=== PATIENT | female | born 1975 | race Caucasian/White ===

== ENCOUNTER 2023-08-19 00:46 | Inpatient (IN) | payer OTHER ==
[2023-08-19] VITALS (13 sets, daily range): BP systolic 113–139; BP diastolic 73–93; PULSE 103–118; RESP 13–20; TEMP 97.5–98.6; O2SAT 93–99
[~2023-08-19] VITALS: Ht 170.2 cm; Wt 116.9 kg
[2023-08-19] MEDS: budesonide 0.5mg/2ml UD nebule IH ONE (01:24)
[2023-08-19] MEDS: ipratropium/albuterol 3ml nebule NEB ONE (01:24)
[2023-08-19] MEDS: methylPREDNISolone sod succ 125mg/2ml vial IV ONE (01:51)
[2023-08-19 01:57] LABS: BASOPHILS % (AUTO) 0.3 % (0-1); EOSINOPHILS # (AUTO) 0.1 X10'3 (0-0.9); EOSINOPHILS % (AUTO) 1.6 % (0-6); HEMATOCRIT 33.6 % (35.0-45.0); HEMOGLOBIN 11.1 g/dl (12.0-16.0); LYMPHOCYTES # (AUTO) 2.1 X10'3 (1.1-4.8); MEAN CORPUSCULAR HEMOGLOBIN 31.3 PG (27.0-31.0); MEAN CORPUSCULAR HGB CONC 32.9 g/dL (33.0-36.5); MEAN CORPUSCULAR VOLUME 95.2 FL (78-98); MEAN PLATELET VOLUME 7.8 FL (7.4-10.4); MONOCYTES # (AUTO) 0.4 X10'3 (0-0.9); MONOCYTES % (AUTO) 8.1 % (2-12); NEUTROPHILS # (AUTO) 2.3 X10'3 (1.8-7.7); PLATELET COUNT 176 X10'3 (140-440); RED BLOOD COUNT 3.53 X10'6 (4.20-5.60); RED CELL DISTRIBUTION WIDTH 14.7 % (11.5-14.5); WHITE BLOOD COUNT 4.9 X10'3 (4.5-11.0)
[2023-08-19 02:19] LABS: ALANINE AMINOTRANSFERASE 124 U/L (12-78); ALBUMIN 3.6 G/DL (3.4-5.0); ALBUMIN/GLOBULIN RATIO 0.9 (1.1-1.5); ALKALINE PHOSPHATASE 96 IU/L (46-116); ANION GAP 12 (8-16); ASPARTATE AMINO TRANSFERASE 108 U/L (10-37); BILIRUBIN,TOTAL 0.5 MG/DL (0.1-1.0); BLOOD UREA NITROGEN 6 MG/DL (7-18); BUN/CREATININE RATIO 9.1 (10.0-20.0); CALCIUM 7.6 MG/DL (8.5-10.1); CHLORIDE 102 MMOL/L (99-107); CREATININE 0.66 MG/DL (0.40-0.90); GLUCOSE 97 MG/DL (70-104); POTASSIUM 3.3 MMOL/L (3.5-5.1); SODIUM 136 MMOL/L (135-145); TOTAL CARBON DIOXIDE 22.4 MMOL/L (24-32); TOTAL PROTEIN 7.6 G/DL (6.4-8.2); eCRCL 104 ML/MIN; eGFR > 90 ML/MIN
[2023-08-19] MEDS ORDERED: mag hydrox/Alum hydrox/simeth 30ml oral suspension PO PRN (03:35)
[2023-08-19] MEDS ORDERED: ondansetron/PF 4mg/2ml inj IV PRN (03:35)
[2023-08-19] MEDS ORDERED: acetaminophen 325mg tablet PO PRN (03:35)
[2023-08-19] MEDS ORDERED: magnesium Cl slow-release 64mg tablet PO PRN (03:35)
[2023-08-19] MEDS ORDERED: potassium Cl 20 mEq SR tablet PO PRN (03:35)
[2023-08-19] MEDS ORDERED: magnesium hydroxide 30ml (MOM) UD suspension PO PRN (03:35)
[2023-08-19] MEDS ORDERED: magnesium 4gm in 100ml NS 100 ML IV PRN (03:35)
[2023-08-19] MEDS ORDERED: potassium Cl 40MEQ/1/2NS 520ml 520 ML IV PRN (03:35)
[2023-08-19 03:37] LABS: MAGNESIUM 1.7 MG/DL (1.5-2.4); PRO BRAIN NATRIURETIC PEPTIDE 662 PG/ML (0-125)
[2023-08-19] MEDS ORDERED: ipratropium/albuterol 3ml nebule NEB PRN (04:25)
[2023-08-19 05:02] LABS: FREE T4 (FREE THYROXINE) 1.24 NG/DL (0.73-1.40); PRO BRAIN NATRIURETIC PEPTIDE 598 PG/ML (0-125); THYROID STIMULATING HORMONE 8.19 ulU/ml (0.34-4.50)
[2023-08-19] MEDS: budesonide 0.5mg/2ml UD nebule IH SCH (08:22)
[2023-08-19 08:26] LABS: CREATINE KINASE 137 U/L (26-192)
[2023-08-19] MEDS: docusate sod 100mg capsule PO SCH (09:04)
[2023-08-19] MEDS: CefTRIAXone/D5W-Rocephin 1gm 50 ML IV SCH (09:06)
[2023-08-19] MEDS: heparin, porcine 5000 units/ml vial SQ SCH (09:06)
[2023-08-19] MEDS: azithromycin/NS 500mg/250ml 250 ML IV SCH (10:33)
[2023-08-19] MEDS ORDERED: iohexol 300mg/ml 100ml inj. ONE (13:06)
[2023-08-19] MEDS: potassium Cl 20 mEq SR tablet PO STA (14:42)
[2023-08-19] MEDS: carVEDilol 3.125mg tablet PO SCH (20:37)
[2023-08-19] MEDS: furosemide 40mg/4ml inj IV SCH (20:37)
[2023-08-19] MEDS: potassium Cl 20 mEq SR tablet PO PRN (20:37)
[2023-08-19] MEDS ORDERED: temazepam 15mg capsule PO PRN (21:00)
[2023-08-19] MEDS: acetaminophen 325mg tablet PO PRN (21:03)
[2023-08-20] VITALS (8 sets, daily range): BP systolic 102–112; BP diastolic 73–83; PULSE 92–108; RESP 15–18; TEMP 97.7–98.4; O2SAT 93–97
[2023-08-20 02:03] LABS: BASOPHILS % (AUTO) 0.1 % (0-1); EOSINOPHILS % (AUTO) 0 % (0-6); HEMATOCRIT 36.2 % (35.0-45.0); HEMOGLOBIN 12.1 g/dl (12.0-16.0); LYMPHOCYTES % (AUTO) 10.6 % (21-51); MEAN CORPUSCULAR HEMOGLOBIN 31.6 PG (27.0-31.0); MEAN CORPUSCULAR HGB CONC 33.5 g/dL (33.0-36.5); MEAN CORPUSCULAR VOLUME 94.2 FL (78-98); MEAN PLATELET VOLUME 8.4 FL (7.4-10.4); MONOCYTES # (AUTO) 0.8 X10'3 (0-0.9); MONOCYTES % (AUTO) 8.4 % (2-12); NEUTROPHILS # (AUTO) 7.5 X10'3 (1.8-7.7); NEUTROPHILS % (AUTO) 80.9 % (42-75); PLATELET COUNT 211 X10'3 (140-440); RED BLOOD COUNT 3.84 X10'6 (4.20-5.60); RED CELL DISTRIBUTION WIDTH 14.6 % (11.5-14.5); WHITE BLOOD COUNT 9.3 X10'3 (4.5-11.0)
[2023-08-20 02:14] LABS: ALBUMIN 3.6 G/DL (3.4-5.0); ANION GAP 8 (8-16); BLOOD UREA NITROGEN 14 MG/DL (7-18); BUN/CREATININE RATIO 17.5 (10.0-20.0); CALCIUM 9.1 MG/DL (8.5-10.1); CHLORIDE 103 MMOL/L (99-107); GLUCOSE 124 MG/DL (70-104); SODIUM 139 MMOL/L (135-145); TOTAL CARBON DIOXIDE 28.5 MMOL/L (24-32); eCRCL 85 ML/MIN; eGFR 77 ML/MIN
[2023-08-20] MEDS: lisinopril 2.5mg tablet PO SCH (08:00)
[2023-08-20] MEDS: spironolactone 25 MG tablet PO SCH (08:30)
[2023-08-20] MEDS: atorvastatin 10mg tablet PO SCH (09:07)
[2023-08-20] MEDS ORDERED: ALBU8HFA INH (15:49)
[2023-08-20] MEDS ORDERED: LISI2.5T14 PO (15:49)
[2023-08-20] MEDS ORDERED: COR3.125T PO (15:49)
[2023-08-20] MEDS ORDERED: ATOR10TA PO (15:49)
[2023-08-20] MEDS ORDERED: SPIR25TA PO (15:49)
== END 2023-08-20 16:31 | disposition home or self-care (01) | DRG 202 ==
LOC: ER 00:47 → ED HOLD 03:38 → SUR 3N 04:32 → UNDODISIN 08-20 15:06
PROVIDERS: ADMIT Internal Medicine Critical Care Medicine; ATTEND Family Medicine
PROC: CB121ZZ Planar Nuclear Medicine Imaging of Lungs and Bronchi using Technetium 99m (Tc-99m) (ICD-10-PCS; principal; 2023-08-20)
DX: J45.901 Unspecified asthma with (acute) exacerbation (principal); I50.23 Acute on chronic systolic (congestive) heart failure; Z20.822 Contact with and (suspected) exposure to COVID-19; E03.9 Hypothyroidism, unspecified; F10.90 Alcohol use, unspecified, uncomplicated
CPT/HCPCS: 36415; 71045; 71260; 78582; 80048; 80053; 82550; 83735; 83880; 84439; 84443; 84484; 85025; 85379; 85651; 86038; 87081; 87811; 93005; 93306; 94640; 94760; 99291; A9539; A9540; G0378; J0456; J0696; J1644; J1940; J2930; J3490; J7040; Q9967

== ENCOUNTER 2023-09-13 22:31 | Inpatient (IN) | payer OTHER ==
[~2023-09-13] VITALS: Ht 170.2 cm; Wt 119.1 kg
[~2023-09-13 22:31] MED LIST: ALBU8HFA INH; ATOR10TA PO; COR3.125T PO; LISI2.5T14 PO; SPIR25TA PO
[2023-09-13 23:43] LABS: MEAN PLATELET VOLUME 7.9 FL (7.4-10.4)
[2023-09-13 23:45] LABS: BASOPHILS % (AUTO) 0.3 % (0-1); EOSINOPHILS # (AUTO) 0.1 X10'3 (0-0.9); EOSINOPHILS % (AUTO) 1.8 % (0-6); HEMATOCRIT 35.7 % (35.0-45.0); HEMOGLOBIN 11.9 g/dl (12.0-16.0); LYMPHOCYTES # (AUTO) 2.6 X10'3 (1.1-4.8); LYMPHOCYTES % (AUTO) 47.5 % (21-51); MEAN CORPUSCULAR HEMOGLOBIN 31.3 PG (27.0-31.0); MEAN CORPUSCULAR HGB CONC 33.2 g/dL (33.0-36.5); MEAN CORPUSCULAR VOLUME 94.1 FL (78-98); MONOCYTES # (AUTO) 0.5 X10'3 (0-0.9); MONOCYTES % (AUTO) 8.6 % (2-12); NEUTROPHILS # (AUTO) 2.3 X10'3 (1.8-7.7); NEUTROPHILS % (AUTO) 41.8 % (42-75); PLATELET COUNT 198 X10'3 (140-440); RED BLOOD COUNT 3.79 X10'6 (4.20-5.60); RED CELL DISTRIBUTION WIDTH 15.4 % (11.5-14.5); WHITE BLOOD COUNT 5.6 X10'3 (4.5-11.0)
[2023-09-13 23:47] LABS: ALBUMIN 3.5 G/DL (3.4-5.0); ANION GAP 13 (8-16); BLOOD UREA NITROGEN 9 MG/DL (7-18); BUN/CREATININE RATIO 13.4 (10.0-20.0); CALCIUM 8.2 MG/DL (8.5-10.1); CHLORIDE 104 MMOL/L (99-107); CREATININE 0.67 MG/DL (0.40-0.90); GLUCOSE 110 MG/DL (70-104); POTASSIUM 3.5 MMOL/L (3.5-5.1); PRO BRAIN NATRIURETIC PEPTIDE 344 PG/ML (0-125); SODIUM 140 MMOL/L (135-145); TOTAL CARBON DIOXIDE 23.5 MMOL/L (24-32); eCRCL 102 ML/MIN; eGFR > 90 ML/MIN
[2023-09-14] MEDS: furosemide 10 MG/1 ML 10ml inj IV ONE (00:08)
[2023-09-14] MEDS: potassium Cl 20 mEq SR tablet PO STA (01:46)
[2023-09-14] MEDS ORDERED: magnesium hydroxide 30ml (MOM) UD suspension PO PRN (05:05)
[2023-09-14] MEDS ORDERED: magnesium 4gm in 100ml NS 100 ML IV PRN (05:05)
[2023-09-14] MEDS ORDERED: potassium Cl 40MEQ/1/2NS 520ml 520 ML IV PRN (05:05)
[2023-09-14] MEDS ORDERED: acetaminophen 325mg tablet PO PRN (05:05)
[2023-09-14] MEDS ORDERED: mag hydrox/Alum hydrox/simeth 30ml oral suspension PO PRN (05:05)
[2023-09-14] MEDS ORDERED: ondansetron/PF 4mg/2ml inj IV PRN (05:05)
[2023-09-14] MEDS ORDERED: magnesium Cl slow-release 64mg tablet PO PRN (05:05)
[2023-09-14] MEDS ORDERED: potassium Cl 20 mEq SR tablet PO PRN ×2 (05:05)
[2023-09-14] MEDS ORDERED: albuterol 2.5 MG/3 ML nebule NEB PRN (05:25)
[2023-09-14 06:50] VITALS: BP 120/76; PULSE 109; RESP 15; TEMP 98.2; O2SAT 95
[2023-09-14 08:56] VITALS: RESP 18
[2023-09-14] MEDS: atorvastatin 10mg tablet PO SCH (08:56)
[2023-09-14] MEDS: carVEDilol 3.125mg tablet PO SCH (08:56)
[2023-09-14] MEDS: furosemide 40mg/4ml inj IV SCH (08:56)
[2023-09-14] MEDS: lisinopril 2.5mg tablet PO SCH (08:58)
[2023-09-14] MEDS: spironolactone 25 MG tablet PO SCH (08:59)
[2023-09-14 10:00] VITALS: BP 108/71; PULSE 97; RESP 16; TEMP 98.3; O2SAT 97
[2023-09-14 10:50] VITALS: BP_SYST 103; BP_SYST 108; BP_SYST 99; BP_DIAS 64; BP_DIAS 71; BP_DIAS 73; PULSE 104; PULSE 113; PULSE 97
== END 2023-09-14 11:30 | disposition home or self-care (01) | DRG 292 ==
LOC: ER 22:31 → ED HOLD 09-14 05:09 → ORTHO 4S 09-14 06:49
PROVIDERS: ADMIT Student in an Organized Health Care Education/Training Program; ATTEND Internal Medicine
DX: I50.23 Acute on chronic systolic (congestive) heart failure (principal); I42.9 Cardiomyopathy, unspecified; J45.909 Unspecified asthma, uncomplicated; R07.9 Chest pain, unspecified; E03.9 Hypothyroidism, unspecified; Z79.899 Other long term (current) drug therapy; Z82.49 Family history of ischemic heart disease and other diseases of the circulatory system; Z83.1 Family history of other infectious and parasitic diseases
CPT/HCPCS: 36415; 71045; 80048; 83880; 84484; 85025; 93005; 99285; G0378; J1940

== ENCOUNTER 2023-12-22 10:01 | Day surgery (SDC) | payer OTHER ==
[2023-12-18 13:37] LABS: BASOPHILS % (AUTO) 0.5 % (0-1); EOSINOPHILS # (AUTO) 0.1 X10'3 (0-0.9); EOSINOPHILS % (AUTO) 2.9 % (0-6); HEMATOCRIT 39.3 % (35.0-45.0); HEMOGLOBIN 13.1 g/dl (12.0-16.0); LYMPHOCYTES # (AUTO) 1.2 X10'3 (1.1-4.8); LYMPHOCYTES % (AUTO) 23.1 % (21-51); MEAN CORPUSCULAR HEMOGLOBIN 32.9 PG (27.0-31.0); MEAN CORPUSCULAR HGB CONC 33.2 g/dL (33.0-36.5); MEAN PLATELET VOLUME 8.5 FL (7.4-10.4); MONOCYTES # (AUTO) 0.5 X10'3 (0-0.9); MONOCYTES % (AUTO) 9.6 % (2-12); NEUTROPHILS # (AUTO) 3.3 X10'3 (1.8-7.7); NEUTROPHILS % (AUTO) 63.9 % (42-75); PLATELET COUNT 179 X10'3 (140-440); RED BLOOD COUNT 3.97 X10'6 (4.20-5.60); RED CELL DISTRIBUTION WIDTH 15.9 % (11.5-14.5); WHITE BLOOD COUNT 5.1 X10'3 (4.5-11.0)
[2023-12-18 13:52] LABS: APTT 28 SECONDS (22-32); PROTHROMBIN TIME 10.9 SECONDS (9.0-12.0)
[2023-12-18 13:53] LABS: ALBUMIN 3.6 G/DL (3.4-5.0); ANION GAP 11 (8-16); BLOOD UREA NITROGEN 15 MG/DL (7-18); BUN/CREATININE RATIO 18.8 (10.0-20.0); CALCIUM 9.5 MG/DL (8.5-10.1); CHLORIDE 101 MMOL/L (99-107); CHOL/HDL RATIO 2.6 (0.00-4.99); CHOLESTEROL 144 MG/DL (0-200); GLUCOSE 94 MG/DL (70-104); HDL CHOLESTEROL 56 MG/DL (35-60); LDL CHOLESTEROL 73 MG/DL (50-100); POTASSIUM 4.5 MMOL/L (3.5-5.1); SODIUM 137 MMOL/L (135-145); TOTAL CARBON DIOXIDE 25.2 MMOL/L (24-32); TRIGLYCERIDES 84 MG/DL (20-135); eGFR 77 ML/MIN
[~2023-12-22] VITALS: Ht 170.2 cm; Wt 120.0 kg
[2023-12-22] VITALS (9 sets, daily range): BP systolic 96–119; BP diastolic 56–78; PULSE 10–93; RESP 10–12; TEMP 98.2; O2SAT 93–97
[~2023-12-22 10:01] MED LIST changes: -ALBU8HFA INH
[2023-12-22] MEDS ORDERED: SPIR25TA5 PO (10:39)
[2023-12-22] MEDS ORDERED: METO-395 PO (10:39)
[2023-12-22] MEDS ORDERED: ATOR10TA70 PO (10:39)
[2023-12-22] MEDS ORDERED: LORA10CA PO (10:39)
[2023-12-22] MEDS ORDERED: DOXY100T2 PO (10:39)
[2023-12-22] MEDS ORDERED: flovent (10:39)
[2023-12-22] MEDS ORDERED: EMPA10TA PO (10:39)
[2023-12-22] MEDS ORDERED: [UNRECOGNIZED DRUG - OTHER] (10:39)
[2023-12-22] MEDS: normal saline 1,000 ML IV SCH (10:41)
[2023-12-22] MEDS: diphenhydrAMINE 25mg capsule PO PRN (10:41)
[2023-12-22] MEDS: LORazepam 0.5 MG tablet PO PRN (10:41)
[2023-12-22] MEDS ORDERED: heparin 1,000unit/ml 10ml vial 10 ML ONE (11:55)
[2023-12-22] MEDS ORDERED: verapamil 2.5 mg/ml inj IV ONE (11:55)
[2023-12-22] MEDS ORDERED: iohexol 350MG/ML 100ml bottle IV ONE (11:55)
[2023-12-22] MEDS ORDERED: LIDOcaine 1% (10mg/ml) 2ml vial ONE (11:55)
[2023-12-22] MEDS ORDERED: midazolam 1 mg/ML 2ml injection ONE (11:55)
[2023-12-22] MEDS ORDERED: fentaNYL/PF 50MCG/1 ML 2ML syringe ONE (11:55)
[2023-12-22] MEDS ORDERED: nitroGLYCERIN 500mcg/5mL D5W 5 ML IV ONE (11:57)
[2023-12-22] MEDS ORDERED: HYDROcodone/acetaminophen 5mg/325mg tablet PO PRN (13:55)
[2023-12-22] MEDS ORDERED: HYDROcodone/acetaminophen 10/325mg tab PO PRN (13:55)
== END 2023-12-22 15:50 | disposition home or self-care (01) ==
LOC: SSTAY O 10:01
PROVIDERS: ATTEND Student in an Organized Health Care Education/Training Program
DX: I11.0 Hypertensive heart disease with heart failure (principal); I50.9 Heart failure, unspecified; I44.7 Left bundle-branch block, unspecified; E78.00 Pure hypercholesterolemia, unspecified; I42.9 Cardiomyopathy, unspecified; J45.909 Unspecified asthma, uncomplicated; Z79.2 Long term (current) use of antibiotics; Z79.899 Other long term (current) drug therapy
CPT/HCPCS: 36415; 80048; 80061; 85025; 85610; 85730; 93005; 93458; A6258; J1644; J2250; J3010; J3490; J7030; Q0163; Q9967; 99152; A6402; C1894